=== PATIENT | male | born 1980 | race Hispanic/Latino ===

== ENCOUNTER 2017-09-08 13:09 | Emergency (ER) | payer BC ==
[~2017-09-08] VITALS: Ht 170.2 cm; Wt 104.3 kg
[~2017-09-08 13:09] MED LIST: APRISO0.375 GM PO; BENTYL10 MG PO; CARAFATE1 GM PO; CLONAZEPAM1 MG PO; CREON DR 24,001 EACH PO; CREON DR 6,000 U1 EA; DEXILANT30 MG PO; INVOKANA PO; JANUMET 50-1,01 EACH PO; KLONOPIN0.5 MG PO; LANOXIN125 MCG PO; LASIX40 MG PO; LEVEMIR100 UNIT/1 SC; LORAZEPAM1 MG PO; MESALAMINE 800 MG PO; NORCO 10-325 T1 EACH PO; OMEPRAZOLE40 MG; OMEPRAZOLE40 MG PO; ONGLYZA5 MG PO; OSENI PO; PANTOPRAZOLE SO40 MG PO; PHENERGAN SUPP25 MG PO; POTASSIUM CHLO20 ME1 PO; PRENATAL CAPSU1 EACH PO; PROMETHAZINE 25 MG PO; REGLAN5 MG PO; TYLENOL WITH C1 EACH PO; ULTRAM50 MG PO; Z.0.APRISO0.375 GM; ZOFRAN ODT4 MG; ZOFRAN4 MG PO
--- OUTSIDE RECORDS SUMMARY | 2017-09-08 13:12 | XMS REPORT ---
Author Author [facility] Address Unknown Phone Unavailable Care Team Providers Care Aircraft Electrical Systems Specialist Name Role Phone HAYLIE SIFUENTES Unavailable Unavailable Problems This patient has no known problems. Allergies, Adverse Reactions, Alerts This patient has no known allergies or adverse reactions. Medications This patient has no known medications. Results Test Description Test Time Test Comments Text Results Atomic Results Result Comments CT ABDOMEN/PELVIS WO [place] [address] Patient Name: AMA PERKINS MR #: [id number] : 1980 Age/Sex: 36/M Req #: [id number] Adm Physician: Ordered by: JACKIE PONCE MD Report #: [id number] Location: ER Room/Bed: Procedure: [id number] CT/CT ABDOMEN/PELVIS WO Exam Date: Exam Time: REPORT STATUS: Signed PROCEDURE: CT ABDOMEN AND PELVIS WITHOUT CONTRAST COMPARISON: [facility], CT, ABDOMEN/ PELVIS WO, 02/21/2011, 16:44. INDICATIONS: Right flank pain TECHNIQUE: Stone protocol Volumetric CT abdomen and pelvis. No intravenous or enteric contrast. Multiplanar reformatted images. DLP: 781.94 FINDINGS : Clear lung bases. No pleural effusions. Normal heart size. Liver: Diffuse low-attenuation and; midclavicular craniocaudal span 15.5 cm. Gallbladder: Cholecystectomy Pancreas: Normal Spleen: Span 15.5 cm. Adrenal glands: Normal Kidneys: Normal. Specifically, no renal stones. Ureters and urinary bladder: Normal Prostate and seminal vesicles: Normal Bowel: Normal caliber. Normal appendix. Peritoneum: Normal Vasculature: Normal arterial caliber. Portal vein diameter 1.9 cm. Lymph nodes : Normal Skeleton: Intact. Soft tissues: Normal CONCLUSION: 1. No ureteral obstruction or nephrolithiasis. 2. Interval development of hepatic steatosis relative to February 2011. Consider SLAUGHTER. 3. Portal vein and spleen enlargement suggesting portal hypertension. Dictated by: Elio Ferrer M.D. on 02/14/2017 at 7:58 Electronically approved by: Elio Ferrer M.D. on 02/14/2017 at 7:58 Dictated By: ELIO FERRER MD 7 Transcribed By: ANGELIC on 02/14/17757 COPY TO: JACKIE PONCE MD
[2017-09-08] MEDS ORDERED: SODIUM CHLORIDE 0.9% 1000ML 1,000 ML IV STA (13:15)
[2017-09-08] MEDS ORDERED: ONDANSETRON HCL 4 MG ORAL DISINTEGRATING TAB PO ONE (13:15)
[2017-09-08] MEDS ORDERED: PANTOPRAZOLE 40 MG 10ML VIAL IV STA (13:15)
[2017-09-08] MEDS ORDERED: MORPHINE SULFATE 4 MG/ML SYR IV STA (13:15)
[2017-09-08 14:58] LABS: BASOPHILS % 0.4 % (0.0-1.0); EOSINOPHILS # (AUTO) 0.1 (0.0-0.4); HEMATOCRIT 42.6 % (38.2-49.6); HEMOGLOBIN 12.9 g/dL (14.0-18.0); LYMPHOCYTES # (AUTO) 1.9 (1.0-3.2); LYMPHOCYTES % 18.2 % (18.0-39.1); MEAN CORPUSCULAR HEMOGLOBIN 19.6 pg (28-32); MEAN CORPUSCULAR HGB CONC 30.3 g/dL (31-35); MEAN CORPUSCULAR VOLUME 64.7 fL (81-99); MONOCYTES # (AUTO) 0.8 (0.2-0.8); MONOCYTES % 7.1 % (4.4-11.3); NEUTROPHILS # (AUTO) 7.8 (2.1-6.9); NEUTROPHILS % 72.9 % (38.7-80.0); PLATELET COUNT 425 x10e3/uL (140-360); RED BLOOD COUNT 6.58 x10e6/uL (4.3-5.7); RED CELL DISTRIBUTION WIDTH 21.7 % (11.7-14.4)
[2017-09-08 15:19] LABS: ALANINE AMINOTRANSFERASE 38 IU/L (0-55); ALBUMIN 3.9 g/dL (3.5-5.0); ALBUMIN/GLOBULIN RATIO 0.7 (0.8-2.0); ALKALINE PHOSPHATASE 72 IU/L (40-150); AMYLASE 51 U/L (25-125); ANION GAP 12.8 mmol/L (8-16); BLOOD UREA NITROGEN 13 mg/dL (7-26); BUN/CREATININE RATIO 16 (6-25); CALCIUM 9.6 mg/dL (8.4-10.2); CARBON DIOXIDE 22 mmol/L (22-29); CHLORIDE 106 mmol/L (98-107); CHOL/HDL RATIO 4.5 (3.9-4.7); CHOLESTEROL 237 MD/DL (0-199); CREATININE, SERUM 0.83 mg/dL (0.72-1.25); EST GLOMERULAR FILTRATION RATE > 60 ML/MIN (60-); GLUCOSE 116 mg/dL (74-118); HDL CHOLESTEROL 53 MG/DL (40-60); LDL CHOLESTEROL 156 MG/DL (60-130); LIPASE 39 U/L (8-78); MAGNESIUM 1.8 MG/DL (1.3-2.1); POTASSIUM 3.8 mmol/L (3.5-5.1); SODIUM 137 mmol/L (136-145); TRIGLYCERIDES 138 MG/DL (0-149)
[2017-09-08] MEDS ORDERED: ONDANSETRON HCL 4 MG ORAL DISINTEGRATING TAB ONE (16:22)
[2017-09-08] MEDS ORDERED: PANTOPRAZOLE 40 MG 10ML VIAL ONE (16:22)
[2017-09-08] MEDS ORDERED: MORPHINE SULFATE 2 MG/ML SYR ONE (16:22)
[2017-09-08] MEDS ORDERED: SODIUM CHLORIDE 0.9% 1000ML 1,000 ML ONE (16:23)
[2017-09-08 17:10] VITALS: BP 136/80
== END 2017-09-08 17:58 | disposition home or self-care (01) ==
LOC: ER 13:09
DX: R10.33 Periumbilical pain (principal); R10.11 Right upper quadrant pain; I10 Essential (primary) hypertension; E11.9 Type 2 diabetes mellitus without complications
CPT/HCPCS: 36415; 80053; 80061; 82150; 83690; 83735; 85025; 93005; 99284; J2270; J7030

== ENCOUNTER 2018-01-21 15:26 | Emergency (ER) | payer BC ==
[~2018-01-21] VITALS: Ht 170.2 cm; Wt 104.3 kg
[2018-01-21] MEDS ORDERED: ONDANSETRON HCL INJ 2 MG/ML VIAL IV STA (15:49)
[2018-01-21] MEDS ORDERED: MORPHINE SULFATE INJ 4 MG/ML INJ IV STA (15:49)
[2018-01-21] MEDS ORDERED: SODIUM CHLORIDE 0.9% 1000ML 1,000 ML IV STA (15:49)
[2018-01-21 16:37] LABS: BASOPHILS # (AUTO) 0.1 (0.0-0.1); BASOPHILS % 0.5 % (0.0-1.0); EOSINOPHILS # (AUTO) 0.1 (0.0-0.4); EOSINOPHILS % 0.7 % (0.0-6.0); HEMATOCRIT 44.3 % (38.2-49.6); HEMOGLOBIN 13.4 g/dL (14.0-18.0); LYMPHOCYTES # (AUTO) 1.7 (1.0-3.2); LYMPHOCYTES % 15.1 % (18.0-39.1); MEAN CORPUSCULAR HEMOGLOBIN 19.4 pg (28-32); MEAN CORPUSCULAR HGB CONC 30.2 g/dL (31-35); MEAN CORPUSCULAR VOLUME 64.3 fL (81-99); MONOCYTES # (AUTO) 0.8 (0.2-0.8); MONOCYTES % 7.2 % (4.4-11.3); NEUTROPHILS # (AUTO) 8.8 (2.1-6.9); NEUTROPHILS % 76.2 % (38.7-80.0); PLATELET COUNT 529 x10e3/uL (140-360); RED BLOOD COUNT 6.89 x10e6/uL (4.3-5.7); RED CELL DISTRIBUTION WIDTH 22.5 % (11.7-14.4)
[2018-01-21 16:59] LABS: ALANINE AMINOTRANSFERASE 44 IU/L (0-55); ALBUMIN 4.3 g/dL (3.5-5.0); ALBUMIN/GLOBULIN RATIO 0.9 (0.8-2.0); ALKALINE PHOSPHATASE 76 IU/L (40-150); AMYLASE 40 U/L (25-125); ANION GAP 17.8 mmol/L (8-16); BLOOD UREA NITROGEN 11 mg/dL (7-26); BUN/CREATININE RATIO 12 (6-25); CALCIUM 10.2 mg/dL (8.4-10.2); CARBON DIOXIDE 20 mmol/L (22-29); CHLORIDE 104 mmol/L (98-107); CHOL/HDL RATIO 4.5 (3.9-4.7); CHOLESTEROL 223 MD/DL (0-199); CREATINE KINASE 52 IU/L (30-200); CREATININE, SERUM 0.92 mg/dL (0.72-1.25); EST GLOMERULAR FILTRATION RATE > 60 ML/MIN (60-); GLUCOSE 206 mg/dL (74-118); HDL CHOLESTEROL 50 MG/DL (40-60); LDL CHOLESTEROL 130 MG/DL (60-130); LIPASE 28 U/L (8-78); POTASSIUM 3.8 mmol/L (3.5-5.1); SODIUM 138 mmol/L (136-145); TRIGLYCERIDES 215 MG/DL (0-149)
[2018-01-21 18:01] LABS: BILIRUBIN,URINE NEGATIVE (NEGATIVE); CLARITY,URINE CLEAR (CLEAR); COLOR,URINE YELLOW (YELLOW); KETONES,URINE NEGATIVE (NEGATIVE); LEUKOCYTE ESTERASE ,URINE NEGATIVE (NEGATIVE); NITRITE,URINE NEGATIVE (NEGATIVE); PROTEIN,URINE DIPSTICK 2+ (NEGATIVE); URINE UROBILINOGEN 0.2 mg/dL (0.2 - 1)
[2018-01-21 18:16] LABS: AMORPHOUS SEDIMENT,URINE FEW (FEW)
[2018-01-21] MEDS ORDERED: DONNATAL/LIDOCAINE/MAALOX 30 ML SUSP PO ONE (19:00)
[2018-01-21] MEDS ORDERED: LIDOCAINE VISC 2% SOLN 15 ML UDC ONE (19:27)
[2018-01-21] MEDS ORDERED: BELLADONNA ALK/PHENOBARBITAL 5 ML UDC ONE (19:27)
[2018-01-21] MEDS ORDERED: ONDANSETRON HCL INJ 2 MG/ML VIAL ONE (19:27)
[2018-01-21] MEDS ORDERED: MAGNESIUM/ALUMINUM/SIMETHICONE 30 ML UDC ONE (19:27)
[2018-01-21 20:30] VITALS: BP 107/78
== END 2018-01-21 20:37 | disposition home or self-care (01) ==
LOC: ER 15:26
DX: R10.11 Right upper quadrant pain (principal); R10.13 Epigastric pain
CPT/HCPCS: 36415; 80053; 80061; 81001; 82150; 82550; 82553; 83690; 83880; 84484; 85025; 99283; J2405

== ENCOUNTER 2018-08-02 21:20 | Emergency (ER) | payer BC ==
[~2018-08-02] VITALS: Ht 170.2 cm; Wt 111.1 kg
[2018-08-02] MEDS ORDERED: KETOROLAC TROMETHAMINE 60 MG/2 ML VIAL IM ONE (21:45)
--- NOTE | 2018-08-02 22:08 | Diagnostic Imaging Report ---
EXAM: CT Abdomen and Pelvis WITHOUT contrast INDICATION: right flank pain, stone protocol COMPARISON: None. TECHNIQUE: Abdomen and pelvis were scanned utilizing a multidetector helical scanner from the lung base to the pubic symphysis without administration of IV contrast. Absence of intravenous contrast decreases sensitivity for detection of focal lesions and vascular pathology. Coronal and sagittal reformations were obtained. Routine protocol was performed. IV CONTRAST: None ORAL CONTRAST: Water COMPLICATIONS: None RADIATION DOSE: Total DLP: 878.4 mGy*cm Estimated effective dose: (DLP x 0.015 x size factor) mSv Dose modulation, iterative reconstruction, and/or weight based adjustment of the mA/kV was utilized to reduce the radiation dose to as low as reasonably achievable. FINDINGS: LINES and TUBES: None. LOWER THORAX: Unremarkable HEPATOBILIARY: No focal hepatic lesions. No biliary ductal dilation. GALLBLADDER: Absent SPLEEN: No splenomegaly. PANCREAS: Atrophic. No focal masses or ductal dilatation. ADRENALS: No adrenal nodules KIDNEYS/URETERS: No hydronephrosis. No cystic or solid mass lesions. No stones. GI TRACT: No abnormal distention, wall thickening, or evidence of bowel obstruction. Submucosal fat deposition in the rectosigmoid colon and proximal duodenum. Appendix is mildly prominent but there are no other findings to suggest appendicitis. PELVIC ORGANS/BLADDER: Unremarkable. LYMPH NODES: No lymphadenopathy. VESSELS: Unremarkable. PERITONEUM / RETROPERITONEUM: No free air or fluid. BONES: Unremarkable. SOFT TISSUES: Unremarkable. IMPRESSION: No acute abnormalities. Signed by: DR. Jorge A Alejo MD on 08/02/2018 10:05 PM
[2018-08-02 22:40] LABS: CLARITY,URINE CLEAR (CLEAR); COLOR,URINE YELLOW (YELLOW)
[2018-08-02 22:41] LABS: BILIRUBIN,URINE NEGATIVE (NEGATIVE); KETONES,URINE NEGATIVE (NEGATIVE); LEUKOCYTE ESTERASE ,URINE NEGATIVE (NEGATIVE); NITRITE,URINE NEGATIVE (NEGATIVE); PROTEIN,URINE DIPSTICK TRACE (NEGATIVE); URINE UROBILINOGEN 0.2 mg/dL (0.2 - 1)
[2018-08-02 22:55] LABS: EPITHELIAL CELLS,URINE RARE /LPF; MUCUS,URINE MODERATE (RARE); RBC,URINE 0-5 /HPF (0-5); WBC,URINE (MAN) 0-5 /HPF (0-5)
--- NOTE | 2018-08-02 23:00 | NUR ---
NO ADVERSE REACTION TO TORADOL INJECTION NOTED. PT REPORTS PAIN IMPROVED
[2018-08-02 23:08] VITALS: BP 142/87
== END 2018-08-02 23:08 | disposition home or self-care (01) ==
LOC: ER 21:20
DX: M54.5 Low back pain (principal); S39.012A Strain of muscle, fascia and tendon of lower back, initial encounter; E11.9 Type 2 diabetes mellitus without complications; F41.9 Anxiety disorder, unspecified; K86.9 Disease of pancreas, unspecified; Z87.19 Personal history of other diseases of the digestive system
CPT/HCPCS: 74176; 81001; 96372; 99283; J1885

== ENCOUNTER → 2020-06-03 | Emergency (ER) | payer BC ==
[~2020-06-03] VITALS: Ht 170.2 cm; Wt 111.1 kg
[~2020-06-03] MED LIST changes: +IOPAMIDOL 370 MG/ML 200 ML INFUS..BTL INJ ONE; +ONDANSETRON HCL INJ 2MG/ML 2ML 2 MG/ML VIAL IV STA; +SODIUM CHLORIDE 0.9% 50ML 50 ML ONE
[2020-06-03 11:49] LABS: BASOPHILS % 0.3 % (0.0-1.0); EOSINOPHILS % 0.1 % (0.0-6.0); HEMATOCRIT 45.3 % (38.2-49.6); HEMOGLOBIN 13.4 g/dL (14.0-18.0); LYMPHOCYTES # (AUTO) 1.3 (1.0-3.2); LYMPHOCYTES % 8.6 % (18.0-39.1); MEAN CORPUSCULAR HEMOGLOBIN 19.1 pg (28-32); MEAN CORPUSCULAR HGB CONC 29.6 g/dL (31-35); MEAN CORPUSCULAR VOLUME 64.4 fL (81-99); MONOCYTES # (AUTO) 0.7 (0.2-0.8); NEUTROPHILS # (AUTO) 12.2 (2.1-6.9); NEUTROPHILS % 84.3 % (38.7-80.0); PLATELET COUNT 618 x10e3/uL (140-360); RED CELL DISTRIBUTION WIDTH 22.7 % (11.7-14.4)
[2020-06-03 11:50] LABS: RED BLOOD COUNT 7.03 x10e6/uL (4.3-5.7)
[2020-06-03 12:08] LABS: ALANINE AMINOTRANSFERASE 35 IU/L (0-55); ALBUMIN 4.4 g/dL (3.5-5.0); ALBUMIN/GLOBULIN RATIO 0.9 (0.8-2.0); ALKALINE PHOSPHATASE 80 IU/L (40-150); ANION GAP 20.1 mmol/L (8-16); BLOOD UREA NITROGEN 15 mg/dL (7-26); BUN/CREATININE RATIO 16 (6-25); CALCIUM 9.7 mg/dL (8.4-10.2); CARBON DIOXIDE 20 mmol/L (22-29); CHLORIDE 102 mmol/L (98-107); CREATINE KINASE 15 IU/L (30-200); CREATININE, SERUM 0.92 mg/dL (0.72-1.25); EST GLOMERULAR FILTRATION RATE > 60 ML/MIN (60-); GLUCOSE 284 mg/dL (74-118); POTASSIUM 4.1 mmol/L (3.5-5.1); SODIUM 138 mmol/L (136-145)
[2020-06-03 15:51] VITALS: BP 114/80
== END | disposition home or self-care (01) ==
LOC: ER 11:25
DX: U07.1 COVID-19 (principal)
CPT/HCPCS: 36415; 71260; 80053; 82550; 82553; 84484; 85025; 99284; J2405; Q9967

== ENCOUNTER 2020-10-05 06:36 | Emergency (ER) | payer BC ==
[~2020-10-05] VITALS: Ht 170.2 cm; Wt 111.1 kg
[~2020-10-05 06:36] MED LIST changes: -IOPAMIDOL 370 MG/ML 200 ML INFUS..BTL INJ ONE; -ONDANSETRON HCL INJ 2MG/ML 2ML 2 MG/ML VIAL IV STA; -SODIUM CHLORIDE 0.9% 50ML 50 ML ONE
[2020-10-05] MEDS ORDERED: SODIUM CHLORIDE 0.9% 1000ML 1,000 ML IV STA (06:54)
[2020-10-05] MEDS ORDERED: KETOROLAC TROMETHAMINE 30 MG/ML VIAL IV ONE (07:00)
[2020-10-05] MEDS ORDERED: ONDANSETRON HCL INJ 2MG/ML 2ML 2 MG/ML VIAL IV ONE (07:00)
[2020-10-05] MEDS ORDERED: FAMOTIDINE 20 MG/2 ML VIAL IV ONE (07:00)
[2020-10-05] MEDS ORDERED: SODIUM CHLORIDE 0.9% 1000ML 1,000 ML ONE (07:24)
[2020-10-05] MEDS ORDERED: ONDANSETRON HCL INJ 2MG/ML 2ML 2 MG/ML VIAL IV STA (09:19)
[2020-10-05] MEDS ORDERED: ONDANSETRON HCL8 MG PO (09:22)
[2020-10-05] MEDS ORDERED: CYCLOBENZAPRINE10 MG PO (09:24)
[2020-10-05] MEDS ORDERED: CYCLOBENZAPRINE HCL 10 MG TAB PO ONE (09:30)
[2020-10-05] MEDS ORDERED: ONDANSETRON HCL INJ 2MG/ML 2ML 2 MG/ML VIAL ONE (09:34)
[2020-10-05] MEDS ORDERED: SODIUM CHLORIDE 0.9% 50ML 50 ML ONE (13:56)
[2020-10-05] MEDS ORDERED: IOPAMIDOL 370 MG/ML 200 ML INFUS..BTL INJ ONE (13:56)
== END 2020-10-05 09:43 | disposition home or self-care (01) ==
LOC: FSED 06:56
DX: M54.5 Low back pain (principal); R11.0 Nausea; K76.0 Fatty (change of) liver, not elsewhere classified; E11.65 Type 2 diabetes mellitus with hyperglycemia; F41.9 Anxiety disorder, unspecified
CPT/HCPCS: 36415; 74177; 80048; 80076; 81003; 83690; 85025; 99284; J1885; J2405; J7030; Q9967